=== PATIENT | female | born 1980 | race Two or more races ===

== ENCOUNTER 2024-02-13 07:37 | Outpatient (CLI) | payer OTHER | END 2024-02-13 07:45 | disposition home or self-care (01) | LOC: SONOGRAMA 07:37 | PROVIDERS: ATTEND Pathology Anatomic Pathology & Clinical Pathology | DX: D34 Benign neoplasm of thyroid gland (principal); E07.89 Other specified disorders of thyroid; E05.20 Thyrotoxicosis with toxic multinodular goiter without thyrotoxic crisis or storm ==